=== PATIENT | female | born 1960 | race Caucasian/White ===

== ENCOUNTER → 2017-07-29 | Outpatient (CLI) | payer OTHER ==
--- NOTE | 2017-07-29 18:52 | WOMENS IMAGING REPORT ---
EXAM DESCRIPTION: 3D SCREENING MAMMO BILAT COMPLETED DATE/TIME: 07/29/2017 8:30 am REASON FOR STUDY: ROUTINE SCREENING; Z12.31 Z12.31 ENCNTR SCREEN MAMMOGRAM FOR MALIGNANT NEOPLASM O F PRISCILLA COMPARISON: Multiple since 2008 TECHNIQUE: Standard craniocaudal and mediolateral oblique views of each breast recorded using digita l acquisition and breast tomosynthesis. LIMITATIONS: None. FINDINGS: No masses, calcifications or architectural distortion. No areas of suspicion. Read with the assistance of CAD. .[facility] - R2 Cenova Version 1.3 .[facility] Imaging - R2 Cenova Version 1.3 .[facility] Imaging - R2 Cenova Version 2.4 .[facility] - R2 Cenova Version 2.4 .[facility] - R2 Patient Sitter Version 9.2 IMPRESSION: NORMAL MAMMOGRAM. BIRADS 1. BREAST DENSITY: a. The breasts are almost entirely fatty. BIRAD: 1 NEGATIVE RECOMMENDATION: ROUTINE SCREENING Please continue bilateral screening tomosynthesis in July 2018 COMMENT: The patient has been notified of the results by letter per [place] requirements. Additional no tification policies are in place for contacting patient with suspicious or incomplete findings. Quality ID #[id number]: The [employer] recommends an annual screening mammogram for women aged 40 years or over. This facility utilizes a reminder system to ensure that all patients receive reminder letters, and/or direct phone calls for appointments. This includes reminders for routine scr eening mammograms, diagnostic mammograms, or other Breast Imaging Interventions when appropriate. Th is patient will be placed in the appropriate reminder system. The [employer] (ACR) has developed recommendations for screening MRI of the breast s in certain patient populations, to be used in conjunction with mammography. Breast MRI surveillanc e may be appropriate for women with more than 20% lifetime risk of developing breast cancer as deter mined by genetic testing, significant family history of the disease, or history of mantle radiation f or Hodgkins Disease. ACR Practice Guidelines 2008. DBT Technology DBT is a type of tomographic mammography. With conventional mammography, overlapping breast tissue ma y make lesions difficult to detect, even with good compression. DBT uses an x-ray tube that rotates a round the breast, taking images at different angles. These images are then combined to create thin sl ices of the breast that the radiologist can view as a 3D reconstruction. The [employer] unit can perform full-field digital mammograms (2D imaging); or DBT (3D imaging); or both, in a combination mode that quickly performs both the mammogram and the tomosynthesis scan while the breast is still compressed. PQRS 6045F: Fluoroscopic imaging is not utilized for breast tomosynthesis. TECHNICAL DOCUMENTATION: FINDING NUMBER: (1) ASSESSMENT: (1) JOB ID: [id number] [employer]- All Rights Reserved
== END ==
LOC: WI 07:57
PROVIDERS: ATTEND Nurse Practitioner Primary Care
DX: Z12.31 Encounter for screening mammogram for malignant neoplasm of breast (principal)
CPT/HCPCS: 77063; G0202; 77067

== ENCOUNTER → 2017-10-08 | Outpatient (CLI) | payer OTHER ==
[2017-10-08 17:51] LABS: ABSOLUTE BASOPHILS # (AUTO) 0.1 10^3/uL (0.0-0.2); ABSOLUTE EOSINOPHILS # (AUTO) 0.2 10^3/uL (0.0-0.6); ABSOLUTE LYMPHOCYTES (AUTO) 2.5 10^3/uL (0.5-4.7); ABSOLUTE MONOCYTES (AUTO) 0.9 10^3/uL (0.1-1.4); ABSOLUTE NEUT (AUTO) 9.2 10^3/uL (1.7-8.2); BASOPHILS % (AUTO) 0.7 % (0-2); EOSINOPHILS % (AUTO) 1.7 % (0-6); HEMATOCRIT 35.7 % (36.0-47.0); LYMPHOCYTES % (AUTO) 19.6 % (13-45); MEAN CORPUSCULAR HGB CONC 33.6 g/dL (32.0-36.0); MEAN CORPUSCULAR VOLUME 87 fl (80-97); MONOCYTES % (AUTO) 6.9 % (3-13); PLATELET COUNT 345 10^3/uL (150-450); RED BLOOD COUNT 4.13 10^6/uL (3.72-5.28); RED CELL DISTRIBUTION WIDTH 13.7 % (11.5-14.0); SEGMENTED NEUTROPHILS % (AUTO) 71.1 % (42-78); TOTAL CELLS COUNTED % (AUTO) 100 %; WHITE BLOOD COUNT 12.9 10^3/uL (4.0-10.5)
[2017-10-08 18:11] LABS: ALANINE AMINOTRANSFERASE 43 U/L (9-52); ALBUMIN 4.6 g/dL (3.5-5.0); ALKALINE PHOSPHATASE 69 U/L (38-126); ANION GAP 14 (5-19); ASPARTATE AMINO TRANSFERASE 40 U/L (14-36); BILIRUBIN,DIRECT 0.4 mg/dL (0.0-0.4); BILIRUBIN,TOTAL 0.4 mg/dL (0.2-1.3); BLOOD UREA NITROGEN 33 mg/dL (7-20); CALCIUM 10.2 mg/dL (8.4-10.2); CARBON DIOXIDE 23 mmol/L (22-30); CHLORIDE 105 mmol/L (98-107); GLUCOSE 85 mg/dL (75-110); POTASSIUM 4.6 mmol/L (3.6-5.0); SODIUM 141.7 mmol/L (137-145); TOTAL PROTEIN 8.1 g/dL (6.3-8.2)
== END ==
LOC: OD 16:16
PROVIDERS: ATTEND Obstetrics & Gynecology
DX: K52.9 Noninfective gastroenteritis and colitis, unspecified (principal); R10.2 Pelvic and perineal pain
CPT/HCPCS: 36415; 80053; 85025; 87493

== ENCOUNTER → 2018-07-30 | Outpatient (CLI) | payer OTHER ==
--- NOTE | 2018-07-30 09:16 | WOMENS IMAGING REPORT ---
EXAM DESCRIPTION: 3D SCREENING MAMMO BILAT COMPLETED DATE/TIME: 07/30/2018 8:01 am REASON FOR STUDY: ROUTINE BILATERAL SCREENING;Z12.31 Z12.31 ENCNTR SCREEN MAMMOGRAM FOR MALIGNANT N EOPLASM OF PRISCILLA COMPARISON: Multiple since 2008 TECHNIQUE: Standard craniocaudal and mediolateral oblique views of each breast recorded using digita l acquisition and breast tomosynthesis. LIMITATIONS: None. FINDINGS: No masses, calcifications or architectural distortion. No areas of suspicion. Read with the assistance of CAD. .[facility] - R2 Cenova Version 1.3 .[facility] Imaging - R2 Cenova Version 1.3 .[facility] - R2 Cenova Version 2.4 .[facility] - R2 Cenova Version 2.4 .[facility] - R2 Middle [employer] Coach Version 9.2 IMPRESSION: NORMAL MAMMOGRAM. BIRADS 1. BREAST DENSITY: a. The breasts are almost entirely fatty. BIRAD: 1 NEGATIVE RECOMMENDATION: ROUTINE SCREENING Please continue yearly bilateral screening mammography/tomosynthesis in July 2019 COMMENT: The patient has been notified of the results by letter per MQSA requirements. Additional no tification policies are in place for contacting patient with suspicious or incomplete findings. Quality ID #[id number]: The [employer] recommends an annual screening mammogram for women aged 40 years or over. This facility utilizes a reminder system to ensure that all patients receive reminder letters, and/or direct phone calls for appointments. This includes reminders for routine scr eening mammograms, diagnostic mammograms, or other Breast Imaging Interventions when appropriate. Th is patient will be placed in the appropriate reminder system. The [employer] (ACR) has developed recommendations for screening MRI of the breast s in certain patient populations, to be used in conjunction with mammography. Breast MRI surveillanc e may be appropriate for women with more than 20% lifetime risk of developing breast cancer as deter mined by genetic testing, significant family history of the disease, or history of mantle radiation f or Hodgkins Disease. ACR Practice Guidelines 2008. DBT Technology DBT is a type of tomographic mammography. With conventional mammography, overlapping breast tissue ma y make lesions difficult to detect, even with good compression. DBT uses an x-ray tube that rotates a round the breast, taking images at different angles. These images are then combined to create thin sl ices of the breast that the radiologist can view as a 3D reconstruction. The [employer] unit can perform full-field digital mammograms (2D imaging); or DBT (3D imaging); or both, in a combination mode that quickly performs both the mammogram and the tomosynthesis scan while the breast is still compressed. PQRS 6045F: Fluoroscopic imaging is not utilized for breast tomosynthesis. TECHNICAL DOCUMENTATION: FINDING NUMBER: (1) ASSESSMENT: (1) JOB ID: [id number] [employer]- All Rights Reserved Reading location - IP/workstation name: [email or web address]
== END ==
LOC: WI 07:43
PROVIDERS: ATTEND Nurse Practitioner Primary Care
DX: Z12.31 Encounter for screening mammogram for malignant neoplasm of breast (principal)
CPT/HCPCS: 77063; 77067

== ENCOUNTER → 2019-01-04 | Outpatient (CLI) | payer OTHER ==
--- NOTE | 2019-01-04 10:56 | RADIOLOGY REPORT (SQ) ---
EXAM DESCRIPTION: U/S RETROPERITON (RENAL/AORTA) COMPLETED DATE/TIME: 01/04/2019 10:02 am REASON FOR STUDY: CKD III (N18.3) N18.3 CHRONIC KIDNEY DISEASE, STAGE 3 (MODERATE) COMPARISON: CT abdomen pelvis 01/06/2012 TECHNIQUE: Dynamic and static grayscale images acquired of the kidneys and bladder and recorded on P ACS. Additional selected color Doppler and spectral images recorded. LIMITATIONS: Large patient FINDINGS: RIGHT KIDNEY: Right kidney is 9.6 cm in length, with mild cortical thinning and grossly no rmal echogenicity. 1.6 cm cyst right mid-pole kidney. No stones. No hydronephrosis. No gross mass es. LEFT KIDNEY: Left kidney is 9.3 cm in length, with mild cortical thinning and grossly normal echogen icity. No solid or suspicious masses. No hydronephrosis. No calcifications. BLADDER: Partially decompressed, no gross masses OTHER FINDINGS: No other significant finding. IMPRESSION: No hydronephrosis. Mild bilateral renal cortical thinning. TECHNICAL DOCUMENTATION: JOB ID: [id number] [email or web address]- All Rights Reserved Reading location - IP/workstation name: [email or web address]
== END ==
LOC: RAD 07:59
PROVIDERS: ATTEND Internal Medicine Nephrology
DX: I12.9 Hypertensive chronic kidney disease with stage 1 through stage 4 chronic kidney disease, or unspecified chronic kidney disease (principal); N18.3 Chronic kidney disease, stage 3 (moderate); D64.9 Anemia, unspecified; E78.00 Pure hypercholesterolemia, unspecified; M19.90 Unspecified osteoarthritis, unspecified site
CPT/HCPCS: 76770

== ENCOUNTER → 2019-01-17 | Outpatient (CLI) | payer OTHER ==
[2019-01-17 14:16] LABS: ABSOLUTE BASOPHILS # (AUTO) 0.1 10^3/uL (0.0-0.2); ABSOLUTE EOSINOPHILS # (AUTO) 0.2 10^3/uL (0.0-0.6); ABSOLUTE LYMPHOCYTES (AUTO) 2.6 10^3/uL (0.5-4.7); ABSOLUTE MONOCYTES (AUTO) 0.6 10^3/uL (0.1-1.4); ABSOLUTE NEUT (AUTO) 5.3 10^3/uL (1.7-8.2); BASOPHILS % (AUTO) 0.9 % (0-2); EOSINOPHILS % (AUTO) 1.7 % (0-6); HEMATOCRIT 34.5 % (36.0-47.0); HEMOGLOBIN 11.5 g/dL (12.0-15.5); LYMPHOCYTES % (AUTO) 30.2 % (13-45); MEAN CORPUSCULAR HEMOGLOBIN 28.9 pg (27.0-33.4); MEAN CORPUSCULAR HGB CONC 33.2 g/dL (32.0-36.0); MEAN CORPUSCULAR VOLUME 87 fl (80-97); MONOCYTES % (AUTO) 6.9 % (3-13); PLATELET COUNT 320 10^3/uL (150-450); RED BLOOD COUNT 3.96 10^6/uL (3.72-5.28); RED CELL DISTRIBUTION WIDTH 14.9 % (11.5-14.0); SEGMENTED NEUTROPHILS % (AUTO) 60.3 % (42-78); TOTAL CELLS COUNTED % (AUTO) 100 %; WHITE BLOOD COUNT 8.7 10^3/uL (4.0-10.5)
[2019-01-17 14:34] LABS: ALANINE AMINOTRANSFERASE 28 U/L (9-52); ALBUMIN 4.2 g/dL (3.5-5.0); ALKALINE PHOSPHATASE 68 U/L (38-126); ANION GAP 12 (5-19); ASPARTATE AMINO TRANSFERASE 36 U/L (14-36); BILIRUBIN,DIRECT 0.3 mg/dL (0.0-0.4); BILIRUBIN,TOTAL 0.5 mg/dL (0.2-1.3); BLOOD UREA NITROGEN 32 mg/dL (7-20); CALCIUM 10.2 mg/dL (8.4-10.2); CARBON DIOXIDE 27 mmol/L (22-30); CHLORIDE 106 mmol/L (98-107); GLUCOSE 76 mg/dL (75-110); PHOSPHORUS 3.8 mg/dL (2.5-4.5); SODIUM 145.2 mmol/L (137-145); TOTAL PROTEIN 7.5 g/dL (6.3-8.2)
[2019-01-17 15:16] LABS: APPEARANCE,URINE SLIGHTLY-CLOUDY; BILIRUBIN,URINE NEGATIVE (NEGATIVE); COLOR,URINE YELLOW; GLUCOSE, URINE NEGATIVE (NEGATIVE); KETONES,URINE NEGATIVE (NEGATIVE); LEUKOCYTE ESTERASE,URINE TRACE (NEGATIVE); NITRITE,URINE NEGATIVE (NEGATIVE); PROTEIN,URINE NEGATIVE (NEGATIVE); URINE SPECIFIC GRAVITY 1.015; UROBILINOGEN,URINE NEGATIVE mg/dL (<2.0)
== END ==
LOC: OD 13:43
PROVIDERS: ATTEND Internal Medicine Nephrology
DX: I12.9 Hypertensive chronic kidney disease with stage 1 through stage 4 chronic kidney disease, or unspecified chronic kidney disease (principal); N18.3 Chronic kidney disease, stage 3 (moderate); E87.5 Hyperkalemia; D64.9 Anemia, unspecified
CPT/HCPCS: 36415; 80053; 81001; 83735; 83970; 84100; 85025

== ENCOUNTER → 2019-05-24 | Outpatient (CLI) | payer OTHER ==
[2019-05-24 09:11] LABS: HEMATOCRIT 36.3 % (36.0-47.0); HEMOGLOBIN 11.8 g/dL (12.0-15.5); MEAN CORPUSCULAR HEMOGLOBIN 28.3 pg (27.0-33.4); MEAN CORPUSCULAR HGB CONC 32.4 g/dL (32.0-36.0); MEAN CORPUSCULAR VOLUME 87 fl (80-97); PLATELET COUNT 321 10^3/uL (150-450); RED BLOOD COUNT 4.16 10^6/uL (3.72-5.28); RED CELL DISTRIBUTION WIDTH 14.5 % (11.5-14.0); WHITE BLOOD COUNT 6.6 10^3/uL (4.0-10.5)
[2019-05-24 09:21] LABS: ANION GAP 8 (5-19); BLOOD UREA NITROGEN 29 mg/dL (7-20); CALCIUM 10.4 mg/dL (8.4-10.2); CARBON DIOXIDE 30 mmol/L (22-30); CHLORIDE 103 mmol/L (98-107); GLUCOSE 100 mg/dL (75-110); POTASSIUM 4.9 mmol/L (3.6-5.0)
== END ==
LOC: OD 08:13
PROVIDERS: ATTEND Internal Medicine Nephrology
DX: I12.9 Hypertensive chronic kidney disease with stage 1 through stage 4 chronic kidney disease, or unspecified chronic kidney disease (principal); N18.4 Chronic kidney disease, stage 4 (severe); D63.1 Anemia in chronic kidney disease; E83.42 Hypomagnesemia; E87.5 Hyperkalemia
CPT/HCPCS: 36415; 80048; 85027

== ENCOUNTER → 2019-08-12 | Outpatient (CLI) | payer OTHER ==
--- NOTE | 2019-08-12 11:37 | WOMENS IMAGING REPORT ---
EXAM DESCRIPTION: 3D SCREENING MAMMO BILAT COMPLETED DATE/TIME: 08/12/2019 8:41 am REASON FOR STUDY: Z12.31 SCREENING MAMMO Z12.31 ENCNTR SCREEN MAMMOGRAM FOR MALIGNANT NEOPLASM OF B RE COMPARISON: 2015 EXAM PARAMETERS: Views: Standard craniocaudal and mediolateral oblique views of each breast recorded using digital acquisition and breast tomosynthesis. Read with the assistance of CAD. .[facility] - [employer] Rebuilder Version 9.2 LIMITATIONS: None. FINDINGS: No suspicious masses, suspicious calcifications or architectural distortion. No areas of c oncern. IMPRESSION: NEGATIVE MAMMOGRAM. BIRADS 1. BREAST DENSITY: a. The breasts are almost entirely fatty. BIRAD: ASSESSMENT: 1 NEGATIVE RECOMMENDATION: ROUTINE SCREENING COMMENT: The patient has been notified of the results by letter per MQSA requirements. Additional no tification policies are in place for contacting patient with suspicious or incomplete findings. Quality ID #[id number]: The [employer] recommends an annual screening mammogram for women aged 40 years or over. This facility utilizes a reminder system to ensure that all patients receive reminder letters, and/or direct phone calls for appointments. This includes reminders for routine scr eening mammograms, diagnostic mammograms, or other Breast Imaging Interventions when appropriate. Th is patient will be placed in the appropriate reminder system. TECHNICAL DOCUMENTATION: FINDING NUMBER: (1) ASSESSMENT: (1) JOB ID: [id number] [employer]- All Rights Reserved Reading location - IP/workstation name: [email or web address]
== END ==
LOC: WI 07:40
PROVIDERS: ATTEND Nurse Practitioner Primary Care
DX: Z12.31 Encounter for screening mammogram for malignant neoplasm of breast (principal)
CPT/HCPCS: 77063; 77067

== ENCOUNTER → 2019-10-18 | Outpatient (CLI) | payer OTHER ==
[2019-10-18 08:04] LABS: ABSOLUTE BASOPHILS # (AUTO) 0.1 10^3/uL (0.0-0.2); ABSOLUTE EOSINOPHILS # (AUTO) 0.2 10^3/uL (0.0-0.6); ABSOLUTE LYMPHOCYTES (AUTO) 3.4 10^3/uL (0.5-4.7); ABSOLUTE MONOCYTES (AUTO) 0.6 10^3/uL (0.1-1.4); ABSOLUTE NEUT (AUTO) 2.9 10^3/uL (1.7-8.2); HEMATOCRIT 34.9 % (36.0-47.0); HEMOGLOBIN 11.6 g/dL (12.0-15.5); MEAN CORPUSCULAR HEMOGLOBIN 29.1 pg (27.0-33.4); MEAN CORPUSCULAR HGB CONC 33.4 g/dL (32.0-36.0); MEAN CORPUSCULAR VOLUME 87 fl (80-97); MONOCYTES % (AUTO) 8.5 % (3-13); PLATELET COUNT 289 10^3/uL (150-450); RED CELL DISTRIBUTION WIDTH 14.9 % (11.5-14.0); SEGMENTED NEUTROPHILS % (AUTO) 40.5 % (42-78); TOTAL CELLS COUNTED % (AUTO) 100 %; WHITE BLOOD COUNT 7.2 10^3/uL (4.0-10.5)
[2019-10-18 08:10] LABS: APPEARANCE,URINE CLEAR; BILIRUBIN,URINE NEGATIVE (NEGATIVE); COLOR,URINE YELLOW; GLUCOSE, URINE NEGATIVE (NEGATIVE); KETONES,URINE NEGATIVE (NEGATIVE); LEUKOCYTE ESTERASE,URINE NEGATIVE (NEGATIVE); NITRITE,URINE NEGATIVE (NEGATIVE); PROTEIN,URINE NEGATIVE (NEGATIVE); URINE SPECIFIC GRAVITY 1.014; UROBILINOGEN,URINE NEGATIVE mg/dL (<2.0)
[2019-10-18 08:29] LABS: ANION GAP 7 (5-19); BLOOD UREA NITROGEN 29 mg/dL (7-20); CALCIUM 9.6 mg/dL (8.4-10.2); CARBON DIOXIDE 28 mmol/L (22-30); CHLORIDE 106 mmol/L (98-107); GLUCOSE 103 mg/dL (75-110); POTASSIUM 4.7 mmol/L (3.6-5.0)
== END ==
LOC: OD 07:17
PROVIDERS: ATTEND Internal Medicine Nephrology
DX: I12.9 Hypertensive chronic kidney disease with stage 1 through stage 4 chronic kidney disease, or unspecified chronic kidney disease (principal); N18.3 Chronic kidney disease, stage 3 (moderate); E87.5 Hyperkalemia; E83.42 Hypomagnesemia; E66.9 Obesity, unspecified
CPT/HCPCS: 36415; 80048; 81001; 83735; 85025

== ENCOUNTER → 2019-12-16 | Outpatient (CLI) | payer BC ==
[2019-12-16 08:27] LABS: ABSOLUTE BASOPHILS # (AUTO) 0.1 10^3/uL (0.0-0.2); ABSOLUTE EOSINOPHILS # (AUTO) 0.2 10^3/uL (0.0-0.6); ABSOLUTE LYMPHOCYTES (AUTO) 2.5 10^3/uL (0.5-4.7); ABSOLUTE MONOCYTES (AUTO) 0.6 10^3/uL (0.1-1.4); HEMATOCRIT 33.4 % (36.0-47.0); HEMOGLOBIN 11.3 g/dL (12.0-15.5); LYMPHOCYTES % (AUTO) 47.2 % (13-45); MEAN CORPUSCULAR HEMOGLOBIN 29.5 pg (27.0-33.4); MEAN CORPUSCULAR HGB CONC 33.8 g/dL (32.0-36.0); MEAN CORPUSCULAR VOLUME 87 fl (80-97); PLATELET COUNT 262 10^3/uL (150-450); RED BLOOD COUNT 3.82 10^6/uL (3.72-5.28); RED CELL DISTRIBUTION WIDTH 14.8 % (11.5-14.0); SEGMENTED NEUTROPHILS % (AUTO) 37.8 % (42-78); TOTAL CELLS COUNTED % (AUTO) 100 %; WHITE BLOOD COUNT 5.3 10^3/uL (4.0-10.5)
[2019-12-16 08:50] LABS: ANION GAP 8 (5-19); BLOOD UREA NITROGEN 34 mg/dL (7-20); CARBON DIOXIDE 28 mmol/L (22-30); CHLORIDE 103 mmol/L (98-107); GLUCOSE 105 mg/dL (75-110); POTASSIUM 4.7 mmol/L (3.6-5.0)
== END ==
LOC: OD 07:30
PROVIDERS: ATTEND Internal Medicine Nephrology
DX: I12.9 Hypertensive chronic kidney disease with stage 1 through stage 4 chronic kidney disease, or unspecified chronic kidney disease (principal); N18.3 Chronic kidney disease, stage 3 (moderate); E87.5 Hyperkalemia; E83.42 Hypomagnesemia
CPT/HCPCS: 36415; 80048; 83735; 85025

== ENCOUNTER → 2020-09-05 | Outpatient (CLI) | payer BC ==
--- NOTE | 2020-09-05 09:05 | WOMENS IMAGING REPORT ---
EXAM DESCRIPTION: 3D SCREENING MAMMO BILAT IMAGES COMPLETED DATE/TIME: 09/05/2020 8:16 am REASON FOR STUDY: ROUTINE BILATERAL SCREENING;Z12.31 Z12.31 ENCNTR SCREEN MAMMOGRAM FOR MALIGNANT N EOPLASM OF PRISCILLA COMPARISON: Priors dating back to 2013 EXAM PARAMETERS: Views: Standard craniocaudal and mediolateral oblique views of each breast recorded using digital acquisition and breast tomosynthesis. Read with the assistance of CAD. .[facility] - [employer] Diversity Director Version 9.2 LIMITATIONS: Is FINDINGS: No suspicious masses, suspicious calcifications or architectural distortion. No areas of c oncern. IMPRESSION: NEGATIVE MAMMOGRAM. BIRADS 1. BREAST DENSITY: b. There are scattered areas of fibroglandular density. BIRAD: ASSESSMENT: 1 NEGATIVE RECOMMENDATION: ROUTINE SCREENING COMMENT: The patient has been notified of the results by letter per MQSA requirements. Additional no tification policies are in place for contacting patient with suspicious or incomplete findings. Quality ID #225: [employer] recommends an annual screening mammogram for women aged 40 years or over. This facility utilizes a reminder system to ensure that all patients receive reminder letters, and/or direct phone calls for appointments. This includes reminders for routine scr eening mammograms, diagnostic mammograms, or other Breast Imaging Interventions when appropriate. Th is patient will be placed in the appropriate reminder system. TECHNICAL DOCUMENTATION: FINDING NUMBER: (1) ASSESSMENT: (1) JOB ID: [id number] 2010 [employer]- All Rights Reserved Reading location - IP/workstation name: [email or web address]
== END ==
LOC: WI 08:33
PROVIDERS: ATTEND Nurse Practitioner Primary Care
DX: Z12.31 Encounter for screening mammogram for malignant neoplasm of breast (principal)
CPT/HCPCS: 77063; 77067